=== PATIENT | female | born 1985 | race Caucasian/White ===

== ENCOUNTER → 2021-02-27 15:03 | Outpatient (CLI) | payer OTHER, SELFPAY ==
--- NOTE | 2021-02-27 15:05 | DI.RAD.S_ITS ---
PROCEDURE: XR LUMBAR SPINE MIN 4V INDICATIONS: back pain TECHNIQUE: 5 views of the lumbar spine were acquired, including bilateral oblique views. COMPARISON: None. FINDINGS: Bones: 5 nonrib-bearing vertebrae are present. There is normal bony alignment. No vertebral body compression fractures. No suspicious bony lesions. Mild L3-L4 degenerative disc changes. Soft tissues: Overlying bowel gas pattern is normal. No suspicious soft tissue calcifications. Intrauterine device projects over the mid pelvis. Oblique images: No pars defects. IMPRESSION: Mild L3-L4 degenerative disc disease. Dictated by: Mimi Stanton MD, PhD on 02/27/2021 at 17:49 Approved by: Mimi Stanton MD, PhD on 02/27/2021 at 17:49
== END ==
PROVIDERS: Referring Provider Physical Medicine & Rehabilitation; Visit Provider Physical Medicine & Rehabilitation
DX: M54.9 Dorsalgia, unspecified (principal); M51.36 Other intervertebral disc degeneration, lumbar region
CPT/HCPCS: 72110

== ENCOUNTER → 2021-03-23 09:42 | Outpatient (CLI) | payer OTHER, SELFPAY ==
--- NOTE | 2021-03-23 09:43 | DI.MRI.S_ITS ---
PROCEDURE: MR LUMBAR SPINE WO CON INDICATIONS: Right-sided axial low back pain TECHNIQUE: Noncontrast sagittal T1 spin echo and T2 fast echo, sagittal STIR, axial T1 and T2 fast spin echo through the lumbar spine. In cases with scoliosis, additional coronal T2 fast spin echo may be performed. COMPARISON: [facility], CR, XR LUMBAR SPINE MIN 4V, 02/27/2021, 15:04. FINDINGS: Image quality: Excellent. Alignment and Curvature: There is normal bony alignment. Bone Marrow: Marrow is of normal overall signal. No acute vertebral body compression fractures. Spinal Cord: Conus medullaris terminates at the L1 level. Visualized cord demonstrates normal signal and size. Paraspinous Soft Tissues: No paravertebral masses. T12-L1: Normal appearance. L1-L2: Normal appearance. L2-L3: Normal appearance. L3-L4: Normal appearance. L4-L5: No significant abnormality is seen. L5-S1: The disc height is well-preserved. Loss of disc signal is seen at this level. Mild disc bulge is seen, with a focal central disc protrusion. There is an associated annular fissure seen posteriorly, as on series 4, image 9. Mild facet joint hypertrophy is seen. Mild bilateral neural foraminal narrowing is seen. Mild central canal narrowing is seen. IMPRESSION: Focal L5-S1 degenerative change. Dictated by: Dallin Main M.D. on 03/23/2021 at 9:50 Approved by: Dallin Main M.D. on 03/23/2021 at 9:52
== END ==
PROVIDERS: PCP Nurse Practitioner Family; Referring Provider Physical Medicine & Rehabilitation; Visit Provider Physical Medicine & Rehabilitation
DX: M47.816 Spondylosis without myelopathy or radiculopathy, lumbar region (principal); M47.817 Spondylosis without myelopathy or radiculopathy, lumbosacral region; M41.9 Scoliosis, unspecified
CPT/HCPCS: 72148

== ENCOUNTER → 2021-05-26 09:58 | Outpatient (CLI) | payer OTHER, SELFPAY ==
[2021-05-26 12:00] LABS: COVID19 -Nasal RAPID Negative (Negative)
== END ==
PROVIDERS: PCP Nurse Practitioner Family; Visit Provider Physical Medicine & Rehabilitation
DX: Z20.822 Contact with and (suspected) exposure to COVID-19 (principal)
CPT/HCPCS: 87635; C9803

== ENCOUNTER 2021-05-28 08:10 | Outpatient (CLI) | payer OTHER, SELFPAY ==
[2021-05-28] VITALS (8 sets, daily range): BP systolic 107–136; BP diastolic 57–78; PULSE 60–67; RESP 12–23; TEMP 37.1; O2SAT 98–100
--- NOTE | 2021-05-28 08:14 | DI.RAD.S_ITS ---
PROCEDURE: PAIN L/SI FACET INJ/BLK 1STL INDICATIONS: SPONDYLOSIS COMPARISON: [facility], MR, MR LUMBAR SPINE WO CON, 03/23/2021, 9:53. [facility], CR, XR LUMBAR SPINE MIN 4V, 02/27/2021, 15:04. FINDINGS: Fluoroscopic spot filming was performed to verify placement of spinal needles on the right at the L4-L5 and L5-S1 levels, as labeled on the films. Appropriate location of the needle tips was confirmed by injection of iodinated contrast. IMPRESSION: Intraprocedural examination demonstrating appropriate positions of the needles. Dictated by: Dallin Main M.D. on 05/28/2021 at 9:02 Approved by: Dallin Main M.D. on 05/28/2021 at 9:03
[2021-05-28] MEDS: MIDAZOLAM 2 MG/2 ML VIAL IV (09:16)
[2021-05-28] MEDS: BUPIVACAINE 0.5% (PF) VIAL 2 ML INJ (09:17)
[2021-05-28] MEDS: LIDOCAINE 1% 20 ML (09:17)
[2021-05-28] MEDS: IOPAMIDOL 15 ML VIAL 3 ML INJ (09:17)
--- NOTE | 2021-05-28 09:24 | P.PCN_ITS ---
Date/Time/Diagnoses Date of procedure: 05/28/21 Time of procedure: 09:24 Pre-procedure diagnosis: 1. FACET ARTHROPATHY, 2. AXIAL LBP, 3. MULTILEVEL DDD Post-procedure diagnosis: same Procedure Notes Procedure: 1. FLUOROSCOPICALLY GUIDED CONTRAST CONTROLLED FACET JOINT INJECTIONS RIGHT L4/5, L5/S1 Indications: [place] is referred by ERNST Liu for treatment of Axial LBP Physician: Akil hCester Total Fluoroscopy time (seconds): 9 Total sedation minutes: 12 Complications: none Procedure in detail & Post-procedure care: FINDINGS Multilevel Facet Arthropathy with Clinically significant axial LBP DESCRIPTION OF PROCEDURE Fluoroscopically guided, contrast-controlled right L4/5, L5/S1 facet joint injections. Following review of allergy and review of potential side effects and complications, including, but not necessarily limited to, infection, allergic reaction, local tissue breakdown, stroke, temporary or permanent nerve injury, paralysis, and possible , the patient indicated that the patient understood and agreed to proceed. An informed consent document was signed by the patient, witnessed by a nurse, and placed in the patient's chart. Additionally, other treatment options including medications, modalities, and physical therapy were reviewed with the patient. After review of previous anaesthesic history and IV conscious sedation the patient was deemed safe to proceed with today?s procedure with IV conscious sedation as ASA class II designation. Safety time-out was performed to confirm patient ID, procedure to be performed and site of procedure. IV sedation was accomplished with a combination of 2mg of Versed was administered by the RN after DO order, titrated to patient comfort during the course of the procedure while the patient remained responsive to all verbal commands. In the prone position, following sterile prep and drape of the lumbar region, the posterior aspect of the right L4/5, L5/S1 facet joints were identified fluor oscopically. The skin was anesthetized via a 25-gauge 1.5-inch needle with 1% lidocaine solution into the corresponding facet joints. At this point, a 22- gauge 3.5-inch spinal needle was atraumatically introduced and advanced under fluoroscopic guidance into the corresponding facet joints. Following negative aspiration, injections of approximately 0.2-cc of Isovue 200 confirmed interarticular placement without vascular uptake. Radiological data, including multiple fluoroscopic views of the lumbosacral spine, reveal a spinal needle at the right L4/5, L5/S1 facet joints. Subsequent views show flow of contrast material both superiorly and inferiorly within the joint space without vascular or intrathecal uptake. At this point, a total of 0.5cc including a mixture of 0.25cc Marcaine and 0.25cc betamethasone was injected without complication into each of the corresponding facet joints. The procedure tolerated the procedure well without signs or symptoms of complications prior to transfer to the recovery area continued monitoring without incident. The patient was then transferred to the recovery area where they were observed for an appropriate period of time after the injection. The patient reported a VAS score of 7 prior to the procedure and a post-procedure VAS of 0. POST OP INSTRUCTIONS The patient was provided a Pain Log to continue to record their response to the target-specific procedure prior to follow-up visit with their referring physician. Additionally, specific post-injection care instructions and a contact number to our office were provided if concerns arise regarding possible complications associated with the procedure are suspected.
== END 2021-05-28 09:40 | disposition home or self-care (01) ==
LOC: RAD 08:13
PROVIDERS: PCP Nurse Practitioner Family; Referring Provider Physical Medicine & Rehabilitation; Visit Provider Physical Medicine & Rehabilitation
DX: M47.816 Spondylosis without myelopathy or radiculopathy, lumbar region (principal); M47.817 Spondylosis without myelopathy or radiculopathy, lumbosacral region; M51.36 Other intervertebral disc degeneration, lumbar region; M51.37 Other intervertebral disc degeneration, lumbosacral region
CPT/HCPCS: 64493; 64494; 99152; J0702; J2250; J3010

== ENCOUNTER 2023-01-16 10:07 | Emergency (ER) | payer OTHER, MEDICAID, SELFPAY ==
--- NOTE | 2023-01-16 10:11 | DI.RAD.S_ITS ---
PROCEDURE: XR CHEST 1V INDICATIONS: Chest pain TECHNIQUE: One view of the chest was acquired. COMPARISON: None. FINDINGS: Surgical changes and devices: None. Lungs and pleura: Lungs are clear. No pleural effusions or pneumothorax. Mediastinum: Mediastinal contours appear normal. Heart size is normal. Bones and chest wall: No suspicious bony lesions. Overlying soft tissues appear unremarkable. IMPRESSION: No acute cardiopulmonary abnormality is seen. Dictated by: Donta De Luna M.D. on 01/16/2023 at 9:50 Approved by: Donta De Luna M.D. on 01/16/2023 at 9:52
[2023-01-16 10:18] VITALS: BP 143/85; PULSE 76; RESP 22; TEMP 37.2; O2SAT 96; BMI 245.4
--- NOTE | 2023-01-16 10:31 | ED.GENADULT ---
HPI - General Adult General Chief complaint: Upper Respiratory Symptoms Stated complaint: sent by [facility], chest pressure, cough Time Seen by Provider: 01/16/23 10:10 Source: patient Mode of arrival: Ambulatory History of Present Illness HPI narrative: Patient is a 37-year-old female who was sent over for the walk-in clinic. For the past several days has had a cough, palpitations, chest pressure. A sore throat because of the cough. No fevers. The palpitations are not necessarily new. They have been going on for a while. She is not worn a Holter monitor. She has been seen by Rheumatology for concern of lupus however her chief sustainability officer told her that she should follow-up with Cardiology. She denies any fevers. It has a nonproductive cough. No belly pain, nausea or vomiting. She is a frequent runner. She is not had to stop because of the symptoms when running. Related Data Home Medications Medication Instructions Recorded Confirmed acetaminophen 500 mg tablet 500 mg PO Q6H PRN 03/04/21 07/31/22 (Tylenol Extra Strength) Allergies Allergy/AdvReac Type Severity Reaction Status Date / Time acetaminophen [From Percocet] Allergy Intermediate Nausea Verified 01/16/23 09:44 adhesive Allergy Intermediate Nausea Verified 01/16/23 09:44 hydrocodone [From Vicodin] Allergy Intermediate Nausea Verified 01/16/23 09:44 latex Allergy Intermediate Nausea Verified 01/16/23 09:44 oxycodone [From Percocet] Allergy Intermediate Nausea Verified 01/16/23 09:44 ANAPSINE Allergy Severe Anaphylaxis Uncoded 01/16/23 09:44 Review of Systems Constitutional Constitutional: Reports system reviewed and no additional complaints, except as documented Cardiovascular Cardiovascular: Reports system reviewed and no additional complaints, except as documented Respiratory Respiratory: Reports system reviewed and no additional complaints, except as documented Gastrointestinal Gastrointestinal: Reports system reviewed and no additional complaints, except as documented Neurologic Neurologic: Reports system reviewed and no additional complaints, except as documented Hematologic/Lymphatic On Anticoagulants: No Patient History Medical History Degenerative tear of acetabular labrum of right hip Scoliosis Facet arthropathy, lumbar Surgical History H/O oral surgery Family History Father Hypertension H/O blood clots Sister Hypertension Grandmother Diabetes mellitus Hypertension Social History Smoking Status: Smoker, status unknown Smoking Status: Smoker, status unknown Exam Initial Vital Signs Initial Vital Signs: Vital Signs Temperature 98.9 F 01/16/23 10:18 Pulse Rate 76 01/16/23 10:18 Respiratory Rate 22 01/16/23 10:18 Blood Pressure 143/85 H 01/16/23 10:18 Pulse Oximetry 96 01/16/23 10:18 Oxygen Delivery Method Room Air 01/16/23 10:18 Const General: cooperative and comfortable HENMT Head: normal to inspection and normocephalic Resp Effort & Inspection: normal respiratory effort Auscultation: clear to auscultation bilaterally Cardio Rate: regular rate Rhythm: regular rhythm GI Inspection: normal to inspection Skin General: no rashes or lesions noted Neuro General: patient alert, patient awake, patient oriented x3 and moves all extremities Extrem General: No edema Scores HEART Score Heart Score history: Slightly Suspicious Heart Score EKG: Normal Heart Score Age: < 45 years old Heart Score risk factors: No known risk factors Heart Score troponin: < or = to normal limit Heart Score Total: 0 PERC Score Age greater than or equal to 50 years: No Heart rate greater than or equal to 100 bpm: No Room Air O2 Sat less than 95%: No Unilateral leg swelling: No Recent trauma or surgery: No Hemoptysis: No Prior PE or DVT: No Hormone Use: No Total PERC Score: 0 Course Orders Ordered: ED Orders 01/16/23 10:10 EKG-12 Lead Stat 01/16/23 10:11 XR chest 1V Stat 01/16/23 10:29 Complete Blood Count AUTO DIFF Stat Comprehensive Metabolic Panel Stat Lipase Stat Test Serum,Qual Stat Troponin & CK Cardiac Panel Stat 01/16/23 10:35 Covid-19 + FLU A/B + RSV - PCR Stat Vital Signs Vital signs: Vital Signs - 8 hr 01/16/23 10:18 Temperature 98.9 F Pulse Rate 76 Respiratory Rate 22 Blood Pressure 143/85 H Pulse Oximetry 96 Oxygen Delivery Method Room Air Medical Decision Making Lab Data Lab results reviewed: Yes I reviewed the patient's lab results. 01/16/23 10:29 01/16/23 10:29 Labs: Lab Results 01/16/23 01/16/23 Range/Units 10:29 10:35 WBC 6.2 (4.5-11.0) X10^3/uL RBC 4.51 (4.0-5.2) X10^6/uL Hgb 13.4 (12.0-16.0) g/dL Hct 39.1 (36-46) % MCV 86.7 (80-100) fL MCH 29.8 (26-34) PG MCHC 34.4 (30-36) % RDW 13.2 (11.6-14.8) % Plt Count 204 (150-400) X10^3/uL Neut % (Auto) 64.5 (50-75) % Lymph % (Auto) 22.7 L (25-40) % Madison % (Auto) 9.5 (3-14) % Eos % (Auto) 1.9 L (2-4) % Baso % (Auto) 1.4 (0-2) % Neut # (Auto) 4000 (4197-7675) /uL Lymph # (Auto) 1400 (8862-1279) /uL Madison # (Auto) 600 (0-900) /uL Eos # (Auto) 100 (0-450) /uL Baso # (Auto) 100 (0-100) /uL Sodium 136 L (137-145) mmol/L Potassium 3.9 (3.4-5.1) mmol/L Chloride 102 (98-107) mmol/L Carbon Dioxide 25 (22-32) mmol/L BUN 6 L (7-17) mg/dL Creatinine 0.61 (0.52-1.04) mg/dL Estimated GFR > 60 (>60) mL/min BUN/Creatinine Ratio 9.8 (6-22) Glucose 98 (70-100) mg/dL Calcium 9.5 (8.4-10.2) mg/dL Total Bilirubin 0.9 (0.2-1.3) mg/dL AST 30 (14-36) IU/L ALT 26 (<35) IU/L Alkaline Phosphatase 55 (38-126) U/L Total Creatine Kinase 117 (30-135) U/L Troponin I < 0.012 (0.01-0.034) ng/mL Total Protein 7.6 (6.3-8.2) g/dL Albumin 4.4 (3.5-5.0) g/dL Globulin 3.2 (1.7-4.1) g/dL Albumin/Globulin Ratio 1.4 (1.0-2.8) Lipase 76 (23-300) U/L Serum , Qual Negative (Negative) SARS-CoV-2 (PCR) Negative (Negative) Influenza A (RT-PCR) Flu a negative (NEGATIVE) Influenza B (RT-PCR) Flu b negative (NEGATIVE) RSV (PCR) Negative (Negative) Imaging Data Chest x-ray: Radiologist's Impression: PROCEDURE: XR CHEST 1V INDICATIONS: Chest pain TECHNIQUE: One view of the chest was acquired. COMPARISON: None. FINDINGS: Surgical changes and devices: None. Lungs and pleura: Lungs are clear. No pleural effusions or pneumothorax. Mediastinum: Mediastinal contours appear normal. Heart size is normal. Bones and chest wall: No suspicious bony lesions. Overlying soft tissues appear unremarkable. IMPRESSION: No acute cardiopulmonary abnormality is seen. ECG Data Attestation: I personally reviewed and interpreted this ECG as follows: Interpretation: Sinus rhythm Ventricular rate is 60 Normal axis Normal QRS Normal QTC No ST T wave changes MDM Narrative Medical decision making narrative: Low risk heart score, negative troponin, sinus rhythm on EKG, chest x-ray is unremarkable. No signs of pneumonia. COVID/flu/RSV negative. Not hypoxic. Not tachypneic. PERC negative. No indication for antibiotics. No ectopy noted on monitoring here in the ER. I agree with her chief sustainability officer that she should follow up with Cardiology and discussed the indications for a Holter monitor. I have low suspicion for PE. She does have a family history of ?factor 2 ?abnormalities. Her father has had a PE in the past. The patient has never had a PE. She is never been tested for this particular abnormality. Given her PERC score of 0 will hold on further workup for now. Discussed return precautions with the patient. She expressed understanding and agreement. Discharge Plan Departure Patient Disposition: Home Clinical Impression: Palpitations Instructions: DI for Arrhythmias Activity Restrictions/Additional Instructions: Recommend that you continue to take any medications as directed. Contact your primary doctor for a follow-up. I do recommend that you talk with your primary doctor about the indications for referral to see Cardiology and also for a Holter monitor. No restrictions on your activities. Return to the emergency department for new or worsening symptoms. Prescriptions: No Action acetaminophen [Tylenol Extra Strength] 500 mg tablet 500 mg PO Q6H PRN Referrals: Sherice Liu ARNP [Primary Care Provider] - Stand Alone Forms: Patient Portal/API
[2023-01-16 10:38] LABS: Add Manual Diff / Slide Review NO; Basophils Absolute Auto 100 /uL (0-100); Basophils Percent Auto 1.4 % (0-2); Eosinophils Absolute Auto 100 /uL (0-450); Eosinophils Percent Auto 1.9 % (2-4); Hematocrit 39.1 % (36-46); Hemoglobin 13.4 g/dL (12.0-16.0); Lymphocytes Absolute Auto 1400 /uL (1100-4500); Lymphocytes Percent Auto 22.7 % (25-40); Mean Corpuscular HGB Conc 34.4 % (30-36); Mean Corpuscular Hemoglobin 29.8 PG (26-34); Mean Corpuscular Volume 86.7 fL (80-100); Monocytes Absolute Auto 600 /uL (0-900); Monocytes Percent Auto 9.5 % (3-14); Neutrophils Absolute Auto 4000 /uL (1500-7000); Neutrophils Percent Auto 64.5 % (50-75); Platelet Count 204 X10^3/uL (150-400); Red Blood Cell Count 4.51 X10^6/uL (4.0-5.2); Red Cell Distribution Width 13.2 % (11.6-14.8); White Blood Cell Count 6.2 X10^3/uL (4.5-11.0)
[2023-01-16 10:47] LABS: Alanine Aminotransferase 26 IU/L (<35); Albumin 4.4 g/dL (3.5-5.0); Albumin Globulin Ratio 1.4 (1.0-2.8); Alkaline Phosphatase 55 U/L (38-126); Aspartate Aminotransferase 30 IU/L (14-36); BUN Creatinine Ratio 9.8 (6-22); Bilirubin Total 0.9 mg/dL (0.2-1.3); Blood Urea Nitrogen 6 mg/dL (7-17); Calcium 9.5 mg/dL (8.4-10.2); Carbon Dioxide 25 mmol/L (22-32); Chloride 102 mmol/L (98-107); Creatine Kinase 117 U/L (30-135); Estimated Glomerular Filt Rate > 60 mL/min (>60); Globulin 3.2 g/dL (1.7-4.1); Glucose 98 mg/dL (70-100); HEMOLYSIS < 15 (0-50); Lipase 76 U/L (23-300); Potassium 3.9 mmol/L (3.4-5.1); Sodium 136 mmol/L (137-145); Total Protein 7.6 g/dL (6.3-8.2)
[2023-01-16 10:48] LABS: Pregnancy Test Serum,Qual Negative (Negative)
[2023-01-16 10:58] LABS: Troponin I < 0.012 ng/mL (0.01-0.034)
[2023-01-16 11:01] VITALS: PULSE 69; RESP 16; O2SAT 100
[2023-01-16 11:18] LABS: Influenza A - CEPHEID Flu A NEGATIVE (NEGATIVE); Influenza B - CEPHEID Flu B NEGATIVE (NEGATIVE); Respiratory Syncytial Virus Negative (Negative)
[2023-01-16 11:19] LABS: COVID-19 CEPHEID 4-PLEX PCR Negative (Negative)
[2023-01-16 11:30] VITALS: PULSE 71; RESP 20; O2SAT 96
== END 2023-01-16 11:35 | disposition home or self-care (01) ==
PROVIDERS: Emergency Provider Emergency Medicine; PCP Nurse Practitioner Family
DX: R00.2 Palpitations (principal); R07.9 Chest pain, unspecified
CPT/HCPCS: 0241U; 36415; 71045; 80053; 82550; 83690; 84484; 84703; 85025; 93005; 99284

== ENCOUNTER → 2023-07-12 13:43 | Outpatient (CLI) | payer OTHER, SELFPAY ==
--- NOTE | 2023-07-12 13:44 | DI.ECHO.S_ITS ---
[facility]---------+ [facility] : : [address] : [place] : : [id number] : : Phone: [phone] Echocardiogram Report + + :Name: ANA MUELLER Study Date: 07/12/2023 Height: 64 in : :Hospital ReadingLocation: Weight: 133 lb : : Gender: Female BSA: 1.6 m2 : :: 1985 Age: 38 yrs BP: 117/75 mmHg: :Reason For Study: DYSPNEA ON EXERTION : :Ordering Physician: SUSANA, : :ADDIE Performed By: Emilee Jacob : :Referring: ADDIE WILHELM : + + Interpretation Summary 1) Normal left ventricular thickness, size, wall motion, and systolic function (EF 55-60%). 2) Normal right ventricular size and function. 3) No significant valvular abnormalities. 4) No prior Echo available for comparison. Procedure: A two-dimensional transthoracic echocardiogram with color flow and Doppler was performed. The study quality was technically adequate. There is no prior echocardiogram noted for this patient. The patient was in sinus bradycardia with heart rates between 51-56 bpm during the exam. Left Ventricle: The left ventricle is normal in size and wall thickness. The ejection fraction is estimated to be 55-60%. Left ventricular systolic function appears normal without focal wall motion abnormalities. Diastolic parameters suggest a relaxation abnormality of the left ventricle, consistent with probable normal filling pressures. Right Ventricle: The right ventricle is normal in size and function. Atria: The left atrium is moderately dilated. Right atrial size is normal. There is no Doppler evidence for an interatrial shunt. Mitral Valve: The mitral valve is normal in structure and function. There is trace mitral regurgitation. Aortic Valve: The aortic valve is trileaflet. The aortic valve opens well. There is no aortic valve stenosis. No aortic regurgitation is present. Tricuspid Valve: The tricuspid valve is normal in structure and function. There is mild tricuspid regurgitation. Pulmonary artery pressures cannot be estimated because of the lack of a measurable TR jet velocity. Pulmonic Valve: The pulmonic valve leaflets are thin and pliable; valve motion is normal. There is no pulmonic valvular regurgitation. Great Vessels: The aortic root is normal size. The dimensions of the ascending aorta are normal. The IVC is dilated (diameter is greater than 2.1 cm) yet it collapses greater than 50% with a sniff. This suggests a right atrial pressure of 8 mm Hg. Pericardium/ Pleura There is no pericardial effusion. There is no pleural effusion. MMode/2D Measurements & Calculations LVIDd: 5.0 cm LVOT diam: 2.1 cm LVIDs: 3.6 cm Ao root diam: 2.8 cm FS: 27.6 % asc Aorta Diam: 2.7 cm IVSd: 0.59 cm Ao Arch Diam (Prox Trans): 2.5 cm LVPWd: 0.67 cm LV mon. diameter/BSA (cm/m^2): 3.0 LV sys. diameter/BSA (cm/m^2): 2.2 LA A2 area: 17.9 cm2 RA long axis: 4.7 cm LA A4 area: 17.5 cm2 RA area: 15.1 cm2 LA length (vol): 4.8 cm RA vol: 41.3 ml LA vol: 55.4 ml RA : 25.1 ml/m2 LA vol index: 33.7 ml/m2 IVC diam: 2.7 cm RVD1 (basal): 3.2 cm RVD2 (mid): 3.1 cm TAPSE: 2.5 cm Doppler Measurements & Calculations Ao V2 max: 140.9 cm/sec LVOT Max Kuldeep: 81.0 cm/sec Ao V2 mean: 99.1 cm/sec LV V1 max P.6 mmHg Ao max P.9 mmHg LV V1 VTI: 18.7 cm Ao mean P.4 mmHg KRZYSZTOF(I,D): 2.1 cm2 Ao V2 VTI: 30.5 cm KRZYSZTOF(V,D): 2.0 cm2 sev ratio: 0.61 KRZYSZTOF indexed to BSA (cm^2/m^2): 1.3 MV E max kuldeep: 102.1 cm/sec PA V2 max: 100.7 cm/sec MV A max kuldeep: 50.8 cm/sec PA V2 mean: 73.7 cm/sec MV E/A: 2.0 PA mean P.4 mmHg Med Peak E' Kuldeep: 12.7 cm/sec PA pr(Accel): 7.1 mmHg E/E' med: 8.0 Lat Peak E' Kuldeep: 16.6 cm/sec E/E' lat: 6.2 E/e' average: 7.1 MV dec time: 0.17 sec SV(LVOT): 65.2 ml Reading Physician:04:27 PM
--- NOTE | 2023-07-12 13:45 | DI.NM.S_ITS ---
PROCEDURE: NM EXERCISE TREADMILL NON NUC COMPARISON: None. INDICATIONS: DYSPNEA ON EXERTION FINDINGS: The patient exercised for 16 minutes and 3 seconds reaching 85% of maximum predicted heart rate (16.9METs, THOM -72%). Appropriate BP response to exercise. Patient had 2/10 chest pain in stage 2 of exercise that didn't worsen with continued exercise and resolved 3 minutes into recovery. No ST changes and no ectopy during exercise of recovery. IMPRESSION: Low risk, normal treadmill ECG only stress test from inducible ischemia standpoint with outstanding exercise tolerance (16.9METs, THOM -72%). Non-diagnostic chest pain during exercise (2/10 chest pain in stage 2 of exercise that didn't worsen with continued exercise and resolved 3 minutes into recovery). Dictated by: Yash Wilhelm MD on 07/13/2023 at 12:02 Approved by: Yash Wilhelm MD on 07/13/2023 at 12:05
== END ==
PROVIDERS: PCP Nurse Practitioner Family; Referring Provider Internal Medicine Cardiovascular Disease; Visit Provider Internal Medicine Cardiovascular Disease
DX: I07.1 Rheumatic tricuspid insufficiency (principal); R06.09 Other forms of dyspnea; R07.9 Chest pain, unspecified
CPT/HCPCS: 93017; 93306

== ENCOUNTER → 2024-03-19 11:11 | Outpatient (CLI) | payer OTHER, SELFPAY ==
--- NOTE | 2024-03-19 11:13 | DI.MRI.S_ITS ---
PROCEDURE: MR SHOULDER RT W CON INDICATIONS: INSTABILITY OF RT SHOULDER TECHNIQUE: After the administration of 12 mL of dilute intra-articular Gadolinium contrast, oblique coronal T1 and T2 spin echo with fat saturation, oblique sagittal T1 spin echo with and without fat saturation, oblique sagittal T2 fast spin echo with fat saturation, axial T1 spin echo with fat saturation through the shoulder. COMPARISON: None. FINDINGS: Image quality: Excellent. Rotator cuff: Low-grade articular surface partial-thickness tear involving distal supraspinatus at its insertion on the humeral head is seen extending to musculotendinous junction. Distal infraspinatus and subscapularis tendinosis is seen. No full-thickness rotator cuff tendon rupture. No rotator cuff muscle atrophy on sagittal images. Bones and bursae: No bone marrow contusions or fractures. Mild acromioclavicular joint osteoarthritic changes are seen. Type 2 acromion, without an os acromiale. Capsule and soft tissues: There is signal abnormality, fraying and contrast extension involving superior anterior glenoid labrum suggestive of superior anterior labral tear. The glenohumeral ligaments appear intact. The long head of the biceps tendon demonstrates normal location and morphology. The rotator interval appears normal, without fibrosis. The coracohumeral ligament is of normal thickness. No intra-articular bodies. IMPRESSION: 1. Low-grade articular surface partial-thickness tear involving distal supraspinatus extending to musculotendinous junction. Distal infraspinatus and subscapularis tendinosis. No full-thickness rotator cuff tendon rupture. 2. Mild acromioclavicular joint osteoarthritis. No fracture or dislocation. No intra-articular loose bodies. 3. Suggestion of subtle superior anterior right glenoid labral tear. Dictated by: Lukas Negron M.D. on 03/19/2024 at 14:10 Approved by: Lukas Negron M.D. on 03/19/2024 at 14:44
--- NOTE | 2024-03-19 11:13 | DI.RAD.S_ITS ---
PROCEDURE: FL ARTHROGRAM SHOULDER RT INDICATIONS: INSTABILITY OF RT SHOULDER COMPARISON: None. TECHNIQUE: The indications, alternatives, benefits, risks, and complications of the procedure were explained to the patient. Written informed consent was obtained and placed in the chart. The shoulder was examined fluoroscopically and a site for needle placement chosen for entry into the glenohumeral joint from an anterior approach. The skin was prepped and draped in a sterile fashion, and 1% lidocaine infiltrated from skin down to joint capsule. A spinal needle was inserted into the glenohumeral joint, and a small amount of iodinated contrast media injected to confirm intra-articular placement of the needle tip. This was followed by approximately 12 mL dilute solution of a gadolinium containing MR contrast agent. The needle was removed and a dressing was applied. The patient was given postprocedural instructions and sent to the MR suite for MR imaging. FINDINGS: A single fluoroscopic spot image demonstrates intra-articular location of injected iodinated contrast. IMPRESSION: Successful fluoroscopically guided administration of dilute Gadolinium solution into the shoulder joint for MR arthrogram. Dictated by: Elías Morin M.D. on 03/19/2024 at 13:17 Approved by: Elías Morin M.D. on 03/19/2024 at 13:18
[2024-03-19] MEDS: LIDOCAINE 1% 20 ML INJ (11:53)
[2024-03-19] MEDS: SODIUM CHLORIDE 0.9 % 20 ML VIAL IV (11:53)
== END ==
LOC: RAD 11:12
PROVIDERS: PCP Nurse Practitioner Family; Referring Provider Physician Assistant Surgical; Visit Provider Physician Assistant Surgical
DX: M75.111 Incomplete rotator cuff tear or rupture of right shoulder, not specified as traumatic (principal); M19.011 Primary osteoarthritis, right shoulder; M25.311 Other instability, right shoulder
CPT/HCPCS: 23350; 73040; 73222; A9579; Q9967